=== PATIENT | female | born 1935 | race Caucasian/White ===

== ENCOUNTER 2017-02-24 07:32 | Emergency (ER) | payer SELFPAY ==
[2017-02-24 07:55] VITALS: BP 150/60
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
== END 2017-02-24 09:35 | disposition home or self-care (01) ==
LOC: UCEAST 07:32
DX: M25.571 Pain in right ankle and joints of right foot (principal); I10 Essential (primary) hypertension; V89.2XXA Person injured in unspecified motor-vehicle accident, traffic, initial encounter; Y92.9 Unspecified place or not applicable; Y99.9 Unspecified external cause status
CPT/HCPCS: 99212; G0463

== ENCOUNTER 2017-08-18 10:21 | Emergency (ER) | payer MEDICARE, BC ==
[2017-08-18] MEDS ORDERED: Acetaminophen TAB* 325 MG PO ONE (12:43)
--- NOTE | 2017-08-18 13:12 | RAD ---
INDICATION: Right hip pain COMPARISON: Lumbar spine 2008 TECHNIQUE: An AP view of the pelvis and AP views of the hip in neutral and abducted position were obtained FINDINGS: Bones: There are no acute bony findings. 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 Joint spaces: There is moderate osteoarthritis about the right hip. SI joints/symphysis: The SI joints and symphysis are intact. 

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
[2017-08-18] MEDS ORDERED: HYDROcodone/ACETAMIN 5-325 MG* 1 TAB PO ONE (13:36)
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
[2017-08-18 14:45] VITALS: BP 118/49
--- NOTE | 2017-08-18 15:59 | UC ---
Case Resendiz Tiffany, scribed for Elaine Dalal DO on 08/18/17 at 1338 . Shoulder Pain HPI - HPI Summary HPI Summary: The patient is an 82 year old F presenting to [facility] accompanied by daughter with a chief complaint of right-sided shoulder pain s/p slipping and falling on ice three hours ago. The patient rates the pain 8/10 in severity. Symptoms aggravated by movement. Symptoms alleviated by nothing. Patient reports right hip and right elbow pain. Patient denies neck pain and head trauma. She denies fever and chills. - History of Current Complaint Chief Complaint: UCTrauma Stated Complaint: SHOULDER AND HIP INJURY Time Seen by Provider: 08/18/17 12:51 Hx Obtained From: Patient Onset/Duration: Lasting Hours - 3 hours, Still Present Severity Currently: Severe Pain Intensity: 8 Pain Scale Used: 0-10 Numeric Character: Throbbing Aggravating Factor(s): Movement Alleviating Factor(s): Nothing - Allergies/Home Medications Allergies/Adverse Reactions: Allergies Allergy/AdvReac Type Severity Reaction Status Date / Time No Known Allergies Allergy Verified 08/18/17 12:37 PMH/Surg Hx/FS Hx/Imm Hx Previously Healthy: No Endocrine History: Hyperthyroidism, Dyslipidemia, Other - Osteoporosis Other Endocrine History: Osteoporosis Cardiovascular History: Hypertension GI/ History: Gastroesophageal Reflux Other History Of: Negative For: HIV, Hepatitis B, Hepatitis C - Surgical History Surgical History: None - Family History Known Family History: Positive: Hypertension, Other - Osteoporosis, father had strokes - Social History Alcohol Use: None Substance Use Type: None Smoking Status (MU): Never Smoked Tobacco - Immunization History Most Recent Influenza Vaccination: 2016 Most Recent Pneumonia Vaccination: last couple years Review of Systems Constitutional: Negative - Fever, chills Musculoskeletal: Negative - Neck pain, head trauma, Other: - Right hip pain, right shoulder pain, right elbow pain All Other Systems Reviewed And Are Negative: Yes Physical Exam Triage Information Reviewed: Yes Vital Signs: Initial Vital Signs Temp 98.5 F 08/18/17 12:41 Pulse 73 08/18/17 12:41 Resp 20 08/18/17 12:41 BP 130/66 08/18/17 12:41 Pulse Ox 96 08/18/17 12:41 Vital Signs Reviewed: Yes - Additional Comments Appearance: Well-Appearing, mild to moderate Pain Distress, Well-Nourished Eyes: conjunctiva clear, no discharge ENT: Hearing grossly normal, normal voice Neck: Normal, Supple Respiratory/Lung Sounds: Lungs clear, Normal breath sounds, No respiratory distress, No accessory muscle use Cardiovascular: RRR, No murmur Musculoskeletal: Deformity in upper arm with significant bruising which appears to be impressive dependent edema in right elbow. Minimal tenderness over the radial head. Patient could bear weight with some pain in the groin area but no bruising and no tenderness to palpation. No bruising on hip. Distal neurovascullary in tact, good pulses. Neurological: Alert, muscle tone normal Psychiatric: Normal, age appropriate behavior Skin: Normal, Warm, Dry, Normal color. Diagnostics - Radiology Shoulder Radiology Interpretation Completed By: Radiologist - ACUTE PROXIMAL HUMERAL FRACTURE. FOLLOW-UP IMAGING MAY BE REQUIRED. ED physician has reviewed this report. Hip/pelvic Radiology Interpretation Completed By: Radiologist - OSTEOARTHRITIS RIGHT HIP. 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 ED physician has reviewed this report. Elbow Radiology Interpretation Completed By: Radiologist - Proximal ulnar fracture. ED physician has reveiwed this report. Shoulder Course/Dx - Course Course Of Treatment: Shoulder X-Ray reveals ACUTE PROXIMAL HUMERAL FRACTURE. FOLLOW-UP IMAGING MAY BE REQUIRED. Hip/pelvis X-Ray reveals OSTEOARTHRITIS RIGHT HIP. 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 Elbow x-ray reveals proximal ulnar fracture. In the [facility] course, the patient was given Tylenol and [place]. - Differential Dx/Diagnosis Provider Diagnoses: hip injury, elbow fx, humorus fx, Elevated blood pressure without diagnosis of hypertension Discharge - Discharge Plan Condition: Stable Disposition: HOME Prescriptions: HYDROcodone/ACETAMIN 5-325 MG* [[place] 5-325 TAB*] 1 tab PO Q6H PRN #14 tab MDD 4 TABS PRN Reason: Pain Patient Education Materials: Arm Fracture in Adults (ED), Elbow Fracture (ED), Hip Sprain (ED) Referrals: Jamari Chatterjee MD [Primary Care Provider] - (follow up in 3-5 days) Filiberto Urbina MD [Medical Doctor] - 1 Day Additional Instructions: ORAL NARCOTIC MEDICATION: You have been given a prescription for pain control. This medication is a narcotic. It's best taken with food, as nausea can result if taken on an empty stomach. Don't operate machinery or drive within six hours of taking this medication. Do not combine this medicine with alcohol, or with any medication which can cause sedation (such as cold tablets or sleeping pills) unless you get permission from the physician. Narcotics tend to cause constipation. If possible, drink plenty of fluids and eat a diet high in fiber and fruits. THIS MEDICATION CAN MAKE YOU GROGGY AND UNSTABLE OF YOUR FEET. SO PLEASE TAKE CARE WHEN GOING FROM LAYING DOWN TO SEATED OR WHEN STANDING UP. IF YOU FEEL LIGHT HEADED WHEN CHANGING POSITIONS, PLEASE SIT OR LAY BACK DOWN TO AVOID FALLING. ESPECIALLY WHEN WAKING UP AT NIGHT TO PEE. The documentation as recorded by the Case hui Tiffany accurately reflects the service I personally performed and the decisions made by me, Elaine Dalal DO.
== END 2017-08-18 15:00 | disposition home or self-care (01) ==
LOC: UCEAST 10:21
DX: S72.091A Other fracture of head and neck of right femur, initial encounter for closed fracture (principal); W00.0XXA Fall on same level due to ice and snow, initial encounter; Y92.9 Unspecified place or not applicable; E05.90 Thyrotoxicosis, unspecified without thyrotoxic crisis or storm; E78.5 Hyperlipidemia, unspecified; M81.0 Age-related osteoporosis without current pathological fracture; I10 Essential (primary) hypertension; K21.9 Gastro-esophageal reflux disease without esophagitis
CPT/HCPCS: 99213; A9270-GY; G0463

== ENCOUNTER 2018-03-15 07:29 | Emergency (ER) | payer MEDICARE, BC ==
[2018-03-15 07:54] VITALS: BP 150/60
--- NOTE | 2018-03-15 08:03 | ED ---
Upper Extremity Pain - HPI Summary HPI Summary: IN-ROOM NOTE: Patient is a 82 y/o F w/ c/o RIGHT SHOULDER DISCOMFORT onsetting after a FALL WHILE GETTING UP FROM A CHAIR four days ago. Patient directly struck shoulder on uncarpeted floor. No spinal injury, head injury, LOC. Shoulder little initial pain after incident. Two days ago, pain worsened. There was BRUISING on LOWER BACK. Pain in room is still present. According to daughter, while cleaning frying santana with circular arm motion, she experiencing right shoulder pain which radiated down to back. Daughter was concerned she broke her right shoulder. Patient states she feels fine except for inability to raise right arm. Daughter states patient states she experiences sharp pain while raising right shoulder. When she broke right shoulder and elbow this past July, she had surgery at that point. Right shoulder has been broken previously. Patient lives with daughter. FMHx of HTN, no cardiac disease on her side. Patient is retired. PMHx of afib is denied. Patient takes medication for hypertension and bone issues. NOTE: This is an 82-year-old female who has osteoporosis complaining of right shoulder discomfort after a fall 4 days ago. She was sitting at a table and when she went to get up she fell between 2 chairs. She denies other injury, loss of consciousness, neck pain or acute confusion. Her vital signs are stable, she is afebrile. Physical history reveals a fracture to the right shoulder in July,. Her previous medical history is significant for hypertension and hyperthyroidism. She also has vitamin D deficiency. She is brought to the [facility] by her daughter. She complains of moderate pain over the anterior lateral aspect of the right shoulder, and her systolic pressure is 150. NURSE'S NOTE: Pt c/o pain in R shoulder. Pt states fell from dining room table between two chairs on Saturday03/11/18. Denies hitting head- denies LOC. Pt states pain is same from Saturday. Pain is 6/10 on note. - History of Current Complaint Chief Complaint: UCUpperExtremity Stated Complaint: R SHOULDER INJURY Time Seen by Provider: 03/15/18 07:52 Hx Obtained From: Patient, Family/Manager Material - daughter contributes to HPI Hx Last Menstrual Period: N/A Mechanism Of Injury: Other - patient was getting up from a chair, fell and hit her right shoulder on uncarpeted floor Onset/Duration: Started Days Ago - injury four days ago, Still Present, Worse Since - two days ago Timing: Constant Severity Currently: Moderate - 6/10 Character: Sharp Aggravating Factor(s): Other - circular motions while cleaning santana aggravate pain Alleviating Factor(s): Nothing Associated Signs & Symptoms: Positive: Bruising - LOWER BACK, Other - NEGATIVE: HEAD INJURY, LOC, SPINAL INJURY - Allergies/Home Medications Allergies/Adverse Reactions: Allergies Allergy/AdvReac Type Severity Reaction Status Date / Time No Known Allergies Allergy Verified 03/15/18 07:40 PMH/Surg Hx/FS Hx/Imm Hx Previously Healthy: Yes Endocrine/Hematology History: Reports: Hx Thyroid Disease - HYPERTHYROIDISM Denies: Hx Diabetes Cardiovascular History: Reports: Hx Hypertension Denies: Hx Congestive Heart Failure, Hx Deep Vein Thrombosis, Hx Myocardial Infarction, Hx Pacemaker/ICD Respiratory History: Denies: Hx Asthma, Hx Chronic Obstructive Pulmonary Disease (COPD), Hx Lung Cancer, Hx Pneumonia, Hx Pulmonary Embolism GI History: Denies: Hx Gall Bladder Disease, Hx Gastrointestinal Bleed, Hx Ulcer, Hx Urosepsis Comment Only: Other GI Disorders - REFLUX History: Denies: Hx Kidney Stones, Hx Renal Disease Neurological History: Denies: Hx Dementia, Hx Migraine, Hx Seizures, Hx Transient Ischemic Attacks (TIA) Psychiatric History: Reports: Hx Depression - Dysthymia. Denies: Hx Anxiety, Hx Schizophrenia, Hx Bipolar Disorder - Surgical History Surgery Procedure, Year, and Place: R shoulder and elbow Jul 2017. pelvic bone Infectious Disease History: No Infectious Disease History: Reports: Hx Shingles Denies: Hx Clostridium Difficile, Hx Hepatitis, Hx Human Immunodeficiency Virus (HIV), Hx of Known/Suspected MRSA, Hx Tuberculosis, Hx Known/Suspected VRE , Hx Known/Suspected VRSA, History Other Infectious Disease, Traveled Outside the [place] in Last 30 Days - Family History Known Family History: Positive: Hypertension, Other - Osteoporosis, father had strokes Negative: None - Social History Alcohol Use: None Substance Use Type: Reports: None Smoking Status (MU): Never Smoked Tobacco Review of Systems Positive: Other - POSITIVE: RIGHT SHOULDER PAIN, LOWER BACK PAIN; NEGATIVE: SPINAL INJURY Positive: Bruising - LOWER BACK Neurological: Other - NEGATIVE: HEAD INJURY Negative: Syncope All Other Systems Reviewed And Are Negative: Yes - Comments Additional Review of Systems Comments: POSITIVE: RIGHT SHOULDER PAIN, LOWER BACK PAIN, LOWER BACK BRUISING. NEGATIVE: LOC, HEAD INJURY, SPINAL INJURY Physical Exam - Summary Physical Exam Summary: Appearance: The patient is well-appearing, is in no pain distress, and is well- nourished. Eyes: Conjunctiva are clear. ENT: The hearing is grossly normal, the pharynx is normal, and the TMs are normal. There is no muffled or hoarse voice. Neck: The neck is supple and there is no lymphadenopathy. Respiratory: The chest is nontender. LUNGS CLEAR, there are normal breath sounds , and there is no respiratory distress. Cardiovascular: HEART REGULAR RATE AND RHYTHM. There is no murmur. Abdomen: The abdomen is soft and nontender. There is no organomegaly. Bowel sounds: present Musculoskeletal: Strength is intact. The patient moves all extremities. Neurological: The patient is alert. Psychological: The patient displays age appropriate behavior Skin: Negative for rashes. EXAMINATION OF RIGHT SHOULDER: PATIENT IS SITTING COMFORTABLY, CAN REMOVE SHIRT WITHOUT DISTRESS. NO PAIN WITH PASSIVE MOVEMENT, FOWARD ACROSS CHEST, MID DISCOMFORT WITH TWISTING AND PUTTING ARM BEHIND BACK; NO CREPITUS OVER POSTERIOR THORAX; MILD TENDERNESS OVER ANTERIOR SHOULDER JUST MEDIAL TO THE HUMERAL HEAD. NO EVIDENT FRACTURE OR DISLOCATION. GOOD MOVEMENT AND CIRCULATION OVER ELBOW, WRIST, AND HAND ON RIGHT. Triage Information Reviewed: Yes Vital Signs On Initial Exam: Initial Vitals Temp Pulse Resp BP Pulse Ox 97.6 F 67 18 150/60 99 03/15/18 07:43 03/15/18 07:43 03/15/18 07:43 03/15/18 07:43 03/15/18 07:43 Vital Signs Reviewed: Yes Diagnostics - Vital Signs Vital Signs Temp Pulse Resp BP Pulse Ox 03/15/18 07:43 97.6 F 67 18 150/60 99 - Laboratory Lab Statement: Any lab studies that have been ordered have been reviewed, and results considered in the medical decision making process. - Radiology RIGHT SHOULDER X-RAY Xray Interpretation: No Acute Changes Radiology Interpretation Completed By: Radiologist - REPORT AND IMPRESSION: #. Healed impacted surgical neck fracture of the humerus. #. No acute fracture evident. Normal acromioclavicular and glenohumeral joint alignment. # . Significant glenohumeral joint osteophytosis without significant joint space narrowing. #. Unremarkable soft tissue contours. #. Chronic healed fractures at multiple RIGHT ribs noted. RIGHT supraclavicular fossa level surgical clips. [facility] physician has reviewed this report and agrees. Re-Evaluation - Re-Evaluation First Eval Re-Evaluation Time: 08:52 Comment: Discussed x-ray results and informed patient of plan to discharge. Patient is agreeable with plan. Course/Dx - Course Course Of Treatment: 82 y/o w/ osteoporosis who reinjuried her right shoulder. Previous hx of comminuted fracture. Exam is unremarkable and consistent with X- ray reading that there is no acute fracture. The differential is fracture vs contusion, Dx is contusion of right shoulder and soft tissue injury. - Diagnoses Differential Diagnosis/HQI/PQRI: Positive: Other - right shoulder fracture vs right shoulder contusion Provider Diagnoses: Contusion Discharge - Sign-Out/Discharge Documenting (check all that apply): Patient Departure - discharge All imaging exams completed and their final reports reviewed: Yes - Discharge Plan Condition: Stable Disposition: HOME Patient Education Materials: Contusion in Adults (ED) Referrals: Jamari Chatterjee MD [Primary Care Provider] - Additional Instructions: PLEASE SEEK CARE AT THE EMERGENCY DEPARTMENT IF SYMPTOMS WORSEN OR IF NEW SYMPTOMS DEVELOP. FOLLOW UP WITH YOUR PRIMARY CARE PHYSICIAN. we discussed: You have bruised her right shoulder. There is no evidence of broken bones. Warm moist heat to the area in the morning; ice during the day for any sharp pains. Keep the shoulder loose by gentle swinging exercises. Follow-up or call us at any time for increased pain or disability. - Billing Disposition and Condition Condition: STABLE Disposition: Home - Attestation Statements Document Initiated by Dipti: Yes Documenting Scribe: Cj Moore Provider For Whom Dipti is Documenting (Include Credential): Juan Bello M.D. Scribe Attestation: Cj Resendiz scribed for Juan Bello M.D. on 03/15/18 at 0900. Scribe Documentation Reviewed: Yes Provider Attestation: The documentation as recorded by the Cj hui accurately reflects the service I personally performed and the decisions made by me, Juan Bello M.D.
--- NOTE | 2018-03-15 08:40 | RAD ---
Indication: RIGHT shoulder/scapular region pain on abduction and post fall. Previous surgery in August 2017. Comparison: August 18, 2017 Technique: Internal rotation AP, external rotation Grashey, scapular Y, axillary views RIGHT shoulder REPORT AND IMPRESSION: #. Healed impacted surgical neck fracture of the humerus. #. No acute fracture evident. Normal acromioclavicular and glenohumeral joint alignment. #. Significant glenohumeral joint osteophytosis without significant joint space narrowing. #. Unremarkable soft tissue contours. #. Chronic healed fractures at multiple RIGHT ribs noted. RIGHT supraclavicular fossa level surgical clips.
== END 2018-03-15 09:10 | disposition home or self-care (01) ==
LOC: UCEAST 07:29
DX: S40.011A Contusion of right shoulder, initial encounter (principal); W17.89XA Other fall from one level to another, initial encounter; Y92.9 Unspecified place or not applicable; E05.90 Thyrotoxicosis, unspecified without thyrotoxic crisis or storm; I10 Essential (primary) hypertension
CPT/HCPCS: 99211; G0463

== ENCOUNTER 2019-02-04 17:06 | Emergency (ER) | payer MEDICARE, BC ==
[2019-02-04 17:40] VITALS: BP 138/70
--- NOTE | 2019-02-04 18:39 | UC ---
Minor Trauma HPI - History of Current Complaint Chief Complaint: UCLaceration Stated Complaint: FACIAL INJURY Time Seen by Provider: 02/04/19 18:38 Hx Last Menstrual Period: N/A Pain Intensity: 4 - Allergies/Home Medications Allergies/Adverse Reactions: Allergies Allergy/AdvReac Type Severity Reaction Status Date / Time No Known Allergies Allergy Verified 02/04/19 17:40 Home Medications: Home Medications Fluoxetine HCl [Prozac] 40 mg PO 02/04/19 [History] PMH/Surg Hx/FS Hx/Imm Hx Other History Of: Negative For: HIV, Hepatitis B, Hepatitis C - Surgical History Surgical History: Yes Surgery Procedure, Year, and Place: R shoulder and elbow Jul 2017. pelvic bone - Family History Known Family History: Positive: Hypertension, Other - Osteoporosis, father had strokes Negative: None - Social History Alcohol Use: None Substance Use Type: None Smoking Status (MU): Never Smoked Tobacco - Immunization History Most Recent Influenza Vaccination: 2015 Most Recent Pneumonia Vaccination: last couple years Physical Exam Vital Signs: Initial Vital Signs Temp 98.9 F 02/04/19 17:33 Pulse 109 02/04/19 17:33 Resp 20 02/04/19 17:33 BP 138/70 02/04/19 17:33 Pulse Ox 95 02/04/19 17:33 Discharge - Discharge Plan Referrals: Jamari Chatterjee MD [Primary Care Provider] -
[2019-02-04] MEDS ORDERED: Acetaminophen TAB* 325 MG PO ONE (18:54)
--- NOTE | 2019-02-04 18:59 | UC ---
General HPI - HPI Summary HPI Summary: Pt presents to with daughter. Pt lives in assisted living. Pt was walking outside yesterday, stubbed toe on uneven sidewalk - fells - causing bruising to left eye, laceration to left lateral orbit. No LOC Pt also with pain left rib. Pt able to get up on her own Today daughter went to visit and saw the bruised eye. Pt denies cp, sob, abd pain. no n/v/d. no hematuria. + po. Pt took APAP last night no analgesia today no anticoagulation unknown last tdap medications reviewed - History of Current Complaint Chief Complaint: UCLaceration Stated Complaint: FACIAL INJURY Time Seen by Provider: 02/04/19 18:38 Hx Obtained From: Patient Hx Last Menstrual Period: N/A Onset Severity: Moderate Current Severity: Moderate Pain Intensity: 4 - Allergy/Home Medications Allergies/Adverse Reactions: Allergies Allergy/AdvReac Type Severity Reaction Status Date / Time No Known Allergies Allergy Verified 02/04/19 17:40 Home Medications: Home Medications Fluoxetine HCl [Prozac] 40 mg PO 02/04/19 [History] PMH/Surg Hx/FS Hx/Imm Hx Previously Healthy: Yes Cardiovascular History: Hypertension Other History Of: Negative For: HIV, Hepatitis B, Hepatitis C - Surgical History Surgical History: Yes Surgery Procedure, Year, and Place: R shoulder and elbow Jul 2017. pelvic bone - Family History Known Family History: Positive: Hypertension, Other - Osteoporosis, father had strokes, Non-Contributory Negative: None - Social History Occupation: Retired Lives: Assisted Living Alcohol Use: None Substance Use Type: None Smoking Status (MU): Never Smoked Tobacco - Immunization History Most Recent Influenza Vaccination: 2015 Most Recent Pneumonia Vaccination: last couple years Review of Systems All Other Systems Reviewed And Are Negative: Yes Constitutional: Positive: Negative Skin: Positive: Bruising, Other - laceration left lateral orbit Respiratory: Positive: Other - left anterior ribs Is Patient Immunocompromised?: No Physical Exam - Summary Physical Exam Summary: Vital Signs Reviewed: Yes A+Ox3, no distress Eyes: Conjunctiva Clear, ROBBY. EOM intact and full, no photophobia Pt with 1cm laceration left lateral margin of orbit. Pt with ecchymosis left orbit. no crepitus ENT: Hearing grossly normal TM x 2 clear - no hemotymp, no septal hematoma, mmoist, uvula midline, no exudate, no erythema Neck: Positive: Supple Respiratory: Positive: No respiratory distress, No accessory muscle use + CTA throughout no w/r no splinting + TTP left lateral anterior inferior ribs no ecchymosis breast, chest wall Cardiovascular: RRR nl s1, s2 no m/r CBT <2 sec abd soft + BS nt/nd no guarding, no distension, no bruising Musculoskeletal Exam: ANNA x 4 without difficulty Strength Intact, ROM Intact no neck pain - FAROM - no spinous prociess pain c/t/l/s Neurological: Positive: Alert, + sensation throughout Psychological: Positive: Normal Response To grab jack man Skin: Positive: no rash, no ecchymosis, abraisons knees, Triage Information Reviewed: Yes Vital Signs: Initial Vital Signs Temp 98.9 F 02/04/19 17:33 Pulse 109 02/04/19 17:33 Resp 20 02/04/19 17:33 BP 138/70 02/04/19 17:33 Pulse Ox 95 02/04/19 17:33 Diagnostics - Radiology No standard instances Radiology Interpretation Completed By: ED Physician - ribs - no fx, no ptx, Radiologist - Patient Name: CURTIS READ Medical Record#: [id number] Ordering Physician: Niharika Kong MD Acct.#: [id number] : 1934 Age: 83 Sex: F Location: [facility] Exam Date: 02/04/191851 ADM Status: REG ER Order Information: CT BRAIN WO Accession Number: [id number] CPT: 45242 EXAM: CT Head Without Contrast EXAM DATE/TIME: 2018 7:12 PM CLINICAL HISTORY: 83 years old, female; Pain and injury or trauma; Initial encounter; Blunt trauma (contusions or hematomas); Without loss of consciousness; Injury details: Left eye pain and bruising after fall today on to face no head complaints and denies loc. ; Additional info: Fall, left facial contusion S/P fall TECHNIQUE: Imaging protocol: Axial computed tomography images of the head without contrast. Radiation optimization: All CT scans at this facility use at least one of these dose optimization techniques: automated exposure control; mA and/or kV adjustment per patient size (includes targeted exams where dose is matched to clinical indication); or iterative reconstruction. COMPARISON: No relevant prior studies available. FINDINGS: Brain: There are moderate periventricular and subcortical lucencies consistent with chronic microvascular ischemic changes. The abdi-white differentiation is maintained. No hemorrhage. No edema. Ventricles: Ventricles and sulci are prominent consistent with age appropriate parenchymal volume loss. Bones/joints: Unremarkable. No acute fracture. Sinuses: Visualized sinuses are unremarkable. No fluid levels. Mastoid air cells: Visualized mastoid air cells are well aerated. No mastoid effusion. Soft tissues: Unremarkable. IMPRESSION: No acute intracranial abnormality. Chronic microvascular ischemic changes. To contact [facility] with a general question : Operations Center - [phone] For direct physician to physician contact: Physician Hotline - [phone] [facility] ([facility] Facility ID #[id number]) < Electronically signed by Omar Barone MD in OV> 02/04/19 2016 Dictated By: Omar Barone MD This report is only to be considered final once signed by the Provider(s) as displayed in the "<Electronically Signed by >" field (s). Absence of a signature indicates the report is in a draft status and still needs to be finalized. In the event this document was created by someone other than the signing Provider, the individual initiating the document will be listed in the "Entered by:" or "Dictated by:" santillan. 1 of 2 Patient Name: CURTIS READ Medical Record#: [id number] Ordering Physician: Niharika Kong MD Acct.#: [id number] : 1935 Age: 83 Sex: F Location: [facility] Exam Date: 02/04/19 185 ADM Status: REG ER Order Information: CT ORBIT W/O Accession Number: [id number] CPT: 67525 EXAM: CT Orbits Without Contrast EXAM DATE/TIME: 02/04/2019 7:14 PM CLINICAL HISTORY: 83 years old, female; Patient HX: Left eye pain and bruising after fall today on to face no head complaints and denies loc. ; Additional info: Fall, left facial contusion S/P fall TECHNIQUE: Imaging protocol: Axial computed tomography images of the orbits without intravenous contrast. Coronal and sagittal reformatted images were created and reviewed. Radiation optimization : All CT scans at this facility use at least one of these dose optimization techniques: automated exposure control; mA and/or kV adjustment per patient size (includes targeted exams where dose is matched to clinical indication); or iterative reconstruction. COMPARISON: No relevant prior studies available. FINDINGS: Orbits: Bilateral cataract surgery. The globes appear intact. Sinuses: Normal. No air-fluid levels. Bones/joints: No acute fracture. Soft tissues: Mild left periorbital edema. IMPRESSION: No acute abnormality. To contact [facility] with a general question: Operations Center - For direct physician to physician contact: Physician Hotline - [phone] [facility] ([facility] Facility ID #[id number]) <Electronically signed by Omar Barone MD in OV> 02/04/192031 Dictated By: Omar Barone MD Dictated Date/Time: 2031 Transcribed Date/Time: Copy to: This report is only to be considered final once signed by the Provider(s) as displayed in the "< Electronically Signed by >" field (s). Absence of a signature indicates the report is in a draft status and still needs to be finalized. In the event this document was created by someone other than the signing Provider, the individual initiating the document will be listed in the "Entered by:" or "Dictated by:" santillan. 1 of 2 Course/Dx - Course Course Of Treatment: pt with mechanical fall yesterday. laceration with scab to left lateral orbit, left ecchymosis, left anterior rib pain - no LOC no anticoagulation - unknown tetanus VSS Will image CT head, orbit, cxr/rib APAP ice wound - clean and steristrip by ca tetanus booster reassess - Diagnoses Provider Diagnosis: Laceration, Facial contusion, Contusion of rib on left side, Abrasion, Need for tetanus booster Discharge - Sign-Out/Discharge Documenting (check all that apply): Patient Departure All imaging exams completed and their final reports reviewed: No - Discharge Plan Condition: Stable Disposition: HOME Patient Education Materials: Diphtheria/Acellular Pertussis/Tetanus Vaccine ( By injection), Laceration (ED), Rib Contusion (ED), Facial Contusion (ED) Referrals: Jamari Chatterjee MD [Primary Care Provider] - Additional Instructions: - Okay to take Tylenol every 6 hours for pain - okay to apply ice or heat to your ribs for pain - take deep, slow breaths several times an hour - hold a blanket or pillow against your ribs for support - you received a tetanus vaccination booster today - your arm will likely be sore over the next 1-2 days - this is juan j - contact your doctor tomorrow to schedule a follow-up appointment - recheck next week - monitor your facial wound for infection - reddness, red streaking, drainage, odor - if you have any concerns contact your doctor As discussed, your radiograph was reviewed by the provider that treated you tonight. It will be read by a radiologist tomorrow morning. If there is a finding other than that discussed with you today, you will receive a call from a care provider. As discussed, the provider will contact your Karon morley, with any new or different findings - Billing Disposition and Condition Condition: STABLE Disposition: Home
[2019-02-04] MEDS ORDERED: Tetan/Diph/Pertus SYR(Tdap)* 0.5 ML SYR(BOOSTRIX) use SYR IM ONE (20:02)
[2019-02-04] MEDS ORDERED: Benzoin Compound STICK TOPICAL ONE (20:03)
--- NOTE | 2019-02-05 10:47 | UC ---
- Progress Note Progress Note: Patient Name: CURTIS READ Medical Record#: [id number] Ordering Physician: Niharika Kong MD Acct.#: [id number] : 1935 Age: 83 Sex: F Location: [facility] Exam Date: 02/04/191851 ADM Status: DEP ER Order Information: RIBS LT UNI W/PA CH MIN 3 VWS Accession Number: [id number] CPT: 53096 INDICATION: Left rib injury. COMPARISON: There are no relevant prior studies available for comparison. TECHNIQUE: 5 views of the left ribs and dual-energy PA views of the chest were obtained. FINDINGS: There appear to be old fractures of the right posterior fourth through eighth ribs. In addition there appear to be old fractures of the left fourth through sixth ribs. No acute fracture is seen. The heart is within normal limits in size. The lungs are hyperinflated. There are linear densities at the left lung base most consistent with atelectasis. No pneumothorax or pleural effusion is seen. IMPRESSION: MULTIPLE BILATERAL OLD RIB FRACTURES, NO ACUTE FRACTURE IS SEEN. <Electronically signed by Christiano Hess MD in OV> 02/05/19710 Dictated By: Christiano Hess MD Dictated Date/Time: 02/05/19710 Transcribed Date/Time: 02/05/19705 Copy to: CC:Jamari Chatterjee MD; Niharika Kong MD Imaging - [facility] - [place] - [facility] [address] [address] ph ([phone]) ph ([phone]) ph ([phone]) This report is only to be considered final once signed by the Provider(s) as displayed in the "<Electronically Signed by >" field (s). Absence of a signature indicates the report is in a draft status and still needs to be finalized. In the event this document was created by someone other than the signing Provider, the individual initiating the document will be listed in the "Entered by:" or "Dictated by:" santillan. 1 of 1 Course/Dx - Diagnoses Provider Diagnoses: Laceration, Facial contusion, Contusion of rib on left side, Abrasion, Need for tetanus booster Discharge - Sign-Out/Discharge Documenting (check all that apply): Patient Departure All imaging exams completed and their final reports reviewed: Yes - Discharge Plan Condition: Stable Disposition: HOME Patient Education Materials: Diphtheria/Acellular Pertussis/Tetanus Vaccine ( By injection), Laceration (ED), Rib Contusion (ED), Facial Contusion (ED) Referrals: Jamari Chatterjee MD [Primary Care Provider] - Additional Instructions: - Okay to take Tylenol every 6 hours for pain - okay to apply ice or heat to your ribs for pain - take deep, slow breaths several times an hour - hold a blanket or pillow against your ribs for support - you received a tetanus vaccination booster today - your arm will likely be sore over the next 1-2 days - this is juan j - contact your doctor tomorrow to schedule a follow-up appointment - recheck next week - monitor your facial wound for infection - reddness, red streaking, drainage, odor - if you have any concerns contact your doctor As discussed, your radiograph was reviewed by the provider that treated you tonight. It will be read by a radiologist tomorrow morning. If there is a finding other than that discussed with you today, you will receive a call from a care provider. As discussed, the provider will contact your Karon morley, with any new or different findings - Billing Disposition and Condition Condition: STABLE Disposition: Home
== END 2019-02-04 20:48 | disposition home or self-care (01) ==
LOC: UCEAST 17:06
DX: S00.12XA Contusion of left eyelid and periocular area, initial encounter (principal); S05.32XA Ocular laceration without prolapse or loss of intraocular tissue, left eye, initial encounter; S20.212A Contusion of left front wall of thorax, initial encounter; W01.0XXA Fall on same level from slipping, tripping and stumbling without subsequent striking against object, initial encounter; Y92.480 Sidewalk as the place of occurrence of the external cause; I10 Essential (primary) hypertension
CPT/HCPCS: 70450; 70480; 90471; 90715; 99213; A9270-GY; G0463

== ENCOUNTER 2020-04-20 10:41 | Inpatient (IN) ==
[2020-04-20] MEDS ORDERED: NS 0.9% 1000 ml BAG 1,000 ML IV ONE (11:08)
[2020-04-20 11:51] LABS: Hematocrit 45 % (35-47); Hemoglobin 15.1 g/dL (12.0-16.0); Mean Corpuscular HGB Conc 34 g/dL (31-36); Mean Corpuscular Hemoglobin 31 pg (27-31); Mean Corpuscular Volume 91 fL (80-97); Mean Platelet Volume 8.9 fL (7.4-10.4); Platelet Count 364 10^3/uL (150-450); Red Blood Count 4.92 10^6 /uL (3.70-4.87); Red Cell Distribution Width 16 % (10-15); White Blood Count 22.7 10^3/uL (3.5-10.8)
[2020-04-20 12:05] LABS: Albumin 3.6 g/dL (3.2-5.2); Albumin/Globulin Ratio 1.3 (1-3); C Reactive Protein 26.92 mg/L (<8.01); Calcium 8.5 mg/dL (8.6-10.3); EGFR African American 126.8 (>60); EGFR Non-African American 104.8 (>60); Globulin 2.7 g/dL (2-4); Total Bilirubin 1.5 mg/dL (0.2-1.0); Total Protein 6.3 g/dL (6.4-8.9)
[2020-04-20 12:46] LABS: ABS Basophils 0.1 10^3/ul (0-0.2); ABS Monocytes 1.3 10^3/ul (0-0.8); ABS Neutrophils 20.3 10^3/ul (1.5-7.7); Lymphocyte % 4.4 %
[2020-04-20] MEDS: Heparin 5000 UNITS/ML 1 mL VIAL SUBCUT SCH (22:08)
[2020-04-21] MEDS: Heparin 5000 UNITS/ML 1 mL VIAL SUBCUT SCH ×2 (05:37→12:33)
[2020-04-21 06:36] LABS: Hematocrit 43 % (35-47); Hemoglobin 14.1 g/dL (12.0-16.0); Mean Corpuscular HGB Conc 33 g/dL (31-36); Mean Corpuscular Hemoglobin 31 pg (27-31); Mean Corpuscular Volume 92 fL (80-97); Mean Platelet Volume 9.3 fL (7.4-10.4); Platelet Count 335 10^3/uL (150-450); Red Blood Count 4.62 10^6 /uL (3.70-4.87); Red Cell Distribution Width 16 % (10-15)
[2020-04-21 06:39] LABS: ABS Lymphocytes 1.3 10^3/ul (1.0-4.8); ABS Monocytes 1.6 10^3/ul (0-0.8); Calcium 7.6 mg/dL (8.6-10.3); Eosinophil % 0.2 %; Lymphocyte % 6.4 %; Potassium 3.6 mmol/L (3.5-5.0)
[2020-04-21 06:45] LABS: EGFR African American 126.8 (>60); EGFR Non-African American 104.8 (>60)
[2020-04-21] MEDS: Cholecalciferol (VIT D3) 1,000 unit TAB PO SCH (10:21)
[2020-04-21] MEDS: NS 0.9% 1000 ml BAG 1,000 ML IV SCH (12:33)
[2020-04-21] MEDS: Enoxaparin 40 MG/0.4 ML SYR SUBCUT SCH (15:37)
[2020-04-22] MEDS: NS 0.9% 1000 ml BAG 1,000 ML IV SCH (03:25)
[2020-04-22] MEDS: Dextran 70/Hypromellose Tears Eye Drops 15 ml BTL (for Artificials Tears) BOTH EYES PRN ×2 (03:25→10:57)
[2020-04-22 09:59] LABS: ABS Basophils 0.1 10^3/ul (0-0.2); ABS Eosinophils 0.1 10^3/ul (0-0.6); ABS Lymphocytes 1.3 10^3/ul (1.0-4.8); ABS Monocytes 1.1 10^3/ul (0-0.8); ABS Neutrophils 12.1 10^3/ul (1.5-7.7); Eosinophil % 0.8 %; Hematocrit 38 % (35-47); Hemoglobin 12.7 g/dL (12.0-16.0); Lymphocyte % 8.7 %; Mean Corpuscular HGB Conc 34 g/dL (31-36); Mean Corpuscular Hemoglobin 31 pg (27-31); Mean Corpuscular Volume 92 fL (80-97); Mean Platelet Volume 9.4 fL (7.4-10.4); Nucleated Red Blood Cells % 0.1; Platelet Count 274 10^3/uL (150-450); Red Blood Count 4.09 10^6 /uL (3.70-4.87); Red Cell Distribution Width 15 % (10-15); White Blood Count 14.7 10^3/uL (3.5-10.8)
[2020-04-22 10:07] LABS: BUN/Creatinine Ratio 14.3 (8-20); Calcium 7.4 mg/dL (8.6-10.3); EGFR African American 144.9 (>60); EGFR Non-African American 119.7 (>60)
[2020-04-22] MEDS: Cholecalciferol (VIT D3) 1,000 unit TAB PO SCH (10:32)
[2020-04-22] MEDS: Enoxaparin 40 MG/0.4 ML SYR SUBCUT SCH (15:45)
[2020-04-22] MEDS ORDERED: Potassium Chlor 20 meq TAB.ER PO ONE (17:00)
[2020-04-23 07:16] LABS: Hematocrit 36 % (35-47); Hemoglobin 12.2 g/dL (12.0-16.0); Mean Corpuscular HGB Conc 34 g/dL (31-36); Mean Corpuscular Hemoglobin 31 pg (27-31); Mean Corpuscular Volume 93 fL (80-97); Mean Platelet Volume 9.1 fL (7.4-10.4); Platelet Count 276 10^3/uL (150-450); Red Blood Count 3.91 10^6 /uL (3.70-4.87); Red Cell Distribution Width 15 % (10-15); White Blood Count 10.8 10^3/uL (3.5-10.8)
[2020-04-23 07:35] LABS: BUN/Creatinine Ratio 8.5 (8-20); Calcium 7.7 mg/dL (8.6-10.3); EGFR Non-African American 125.6 (>60); Potassium 3.2 mmol/L (3.5-5.0)
[2020-04-23] MEDS ORDERED: Potassium Chlor 20 meq TAB.ER PO ONE (08:00)
[2020-04-23] MEDS: Cholecalciferol (VIT D3) 1,000 unit TAB PO SCH (08:26)
[2020-04-23 11:26] VITALS: BP 116/54
[2020-04-23 12:08] LABS: Magnesium 1.9 mg/dL (1.9-2.7)
== END 2020-04-23 13:30 | disposition home health service (06) | DRG 872 ==
LOC: ED 10:41 → MED 14:22
PROVIDERS: ADMIT Internal Medicine; ATTEND Internal Medicine